=== PATIENT | female | born 1970 | race Caucasian/White ===

== ENCOUNTER 2017-10-28 17:30 | Emergency (ER) | payer OTHER ==
[~2017-10-28] VITALS: Ht 162.6 cm; Wt 93.0 kg
[~2017-10-28 17:30] MED LIST: ACETAMINOPHEN-1 EAC1 PO; ALBUTEROL INHAL17 GM IH; ALBUTEROL2.5 MG/31 INH; ALLEGRA180 MG; AZITHROMYCIN 2250 MG PO; B COMPLEX1 EAC1 PO; BIOTIN5 M1 PO; CARAFATE 1 GM TA1 G1 PO; CLEOCIN HCL300 MG PO; CYCLOBENZAPRINE10 MG PO; ESTRACE2 MG PO; ESTRADIOL 1 MG T1 M1; ESTROGEN; HYDROCODON-ACE1 EAC8 PO; HYDROCODONE-AP1 EAC6 PO; HYDROCODONE-APA1 TA1 PO; KEFLEX500 MG PO; MEDROLDOSEPACK PO; NASONEX17 GM; NEURONTIN 300300 M1 PO; NEXIUM 40 MG CA40 M1 PO; NEXIUM40 MG PO; NORCO 5-325 TA1 EAC1 PO; NORCO 5-325 TA1 EACH PO; OXYCODONE HCL 55 MG PO; PERCOCET 5-3251 EACH PO; PREDNISONE 20 M20 MG; PREDNISONE50 MG PO; PROAIR HFA8.5 GM INH; PROTONIX 20 MG20 M1 PO; TOPAMAX 100 MG100 MG PO; TORADOL 10 MG T10 MG PO; TYLENOL325 MG PO; ULTRAM 50MG TAB50 MG PO; VALIUM5 MG PO; VICODIN 5-5001 EACH PO; VITAMIN B-12500 MCG PO; ZOFRAN ODT4 MG PO; ZPAK PO; ZYRTEC10 M2
[2017-10-28] MEDS ORDERED: BIOTIN1 M1 PO (17:42)
[2017-10-28] MEDS ORDERED: NEURONTIN 300300 M1 PO (17:42)
[2017-10-28 18:15] LABS: ABSOLUTE EOSINOPHILS 0.3 thou/uL (0.0-0.7); ABSOLUTE MONOCYTES 0.5 thou/uL (0.0-1.2); ABSOLUTE NEUTROPHILS 3.1 thou/uL (1.6-8.1); BASOPHILS 0.5 %; EOSINOPHILS 5.1 %; HEMATOCRIT 31.1 % (37.0-47.0); LYMPHOCYTES 33.9 %; MCH 24.3 pg (26.0-34.0); MCV 75.8 fL (80.0-100.0); MONOCYTES 8.1 %; MPV 8.4 fl. (7.2-11.1); NUCLEATED RBCS 0 /100WBC; PLATELET COUNT* 246 thou/uL (150-400); POLYS 52.4 %; RDW-CV 18.6 % (10.5-14.5); WBC 5.9 thou/uL (4.0-11.0)
[2017-10-28 18:24] LABS: CREATININE 0.8 mg/dL (0.6-1.3); POTASSIUM 4.7 mmol/L (3.5-5.1)
[2017-10-28 18:29] LABS: ALBUMIN 3.2 g/dL (3.4-5.0); TOTAL BILIRUBIN 0.1 mg/dL (<0.1-1.0); TOTAL PROTEIN 6.8 g/dL (6.4-8.2)
[2017-10-28 19:28] LABS: URINE BILIRUBIN NEGATIVE (Negative); URINE BLOOD NEGATIVE (Negative); URINE CLARITY CLEAR; URINE COLOR YELLOW; URINE GLUCOSE-RANDOM NEGATIVE (Negative); URINE KETONES TRACE (Negative); URINE LEUKOCYTES NEGATIVE (Negative); URINE NITRITE NEGATIVE (Negative); URINE PROTEIN NEGATIVE (Negative)
[2017-10-28] MEDS ORDERED: ONDANSETRON HCL4 M2 PO (19:30)
[2017-10-28] MEDS ORDERED: TRAMADOL 50 MG50 MG PO (19:30)
[2017-10-28 19:47] VITALS: BP 129/49
== END 2017-10-28 19:47 | disposition home or self-care (01) ==
LOC: M.ERS 17:30
PROVIDERS: Nurse Practitioner Family
DX: K59.00 Constipation, unspecified (principal); R11.2 Nausea with vomiting, unspecified; S30.861A Insect bite (nonvenomous) of abdominal wall, initial encounter; G43.909 Migraine, unspecified, not intractable, without status migrainosus; G62.9 Polyneuropathy, unspecified; Z90.49 Acquired absence of other specified parts of digestive tract; Z90.710 Acquired absence of both cervix and uterus; Z88.6 Allergy status to analgesic agent; Z88.5 Allergy status to narcotic agent; Z88.0 Allergy status to penicillin; W57.XXXA Bitten or stung by nonvenomous insect and other nonvenomous arthropods, initial encounter; Y93.89 Activity, other specified; Y92.89 Other specified places as the place of occurrence of the external cause; Y99.8 Other external cause status

== ENCOUNTER 2019-03-13 14:09 | Inpatient (IN) | payer OTHER ==
[~2019-03-13] VITALS: Ht 162.6 cm; Wt 111.6 kg
[~2019-03-13 14:09] MED LIST changes: +BIOTIN1 M1 PO; +ONDANSETRON HCL4 M2 PO; +TRAMADOL 50 MG50 MG PO
[2019-03-13 14:10] VITALS: BP 127/61
[2019-03-13] MEDS ORDERED: AMBIEN 10 MG TA10 MG PO (14:15)
[2019-03-13 14:55] LABS: ABSOLUTE EOSINOPHILS 0.2 thou/uL (0.0-0.7); ABSOLUTE MONOCYTES 0.6 thou/uL (0.0-1.2); ABSOLUTE NEUTROPHILS 2.2 thou/uL (1.6-8.1); BASOPHILS 0.6 %; EOSINOPHILS 5.1 %; HEMATOCRIT 32.5 % (37.0-47.0); HEMOGLOBIN 10.6 gm/dL (12.0-15.0); LYMPHOCYTES 24.4 %; MCH 23.6 pg (26.0-34.0); MCHC 32.7 g/dL (28.0-37.0); MCV 72.2 fL (80.0-100.0); MONOCYTES 14.9 %; MPV 8.8 fl. (7.2-11.1); NUCLEATED RBCS 0 /100WBC; PLATELET COUNT* 227 thou/uL (150-400); RDW-CV 20.3 % (10.5-14.5); WBC 3.9 thou/uL (4.0-11.0)
[2019-03-13 14:58] LABS: BE -0.5 mmol/L (-2 to +3); PCO2 22.6 mmHg (35.0-45.0); pH 7.571 (7.340-7.450)
[2019-03-13 15:05] LABS: PO2 155.2 mmHg (75.0-100.0)
[2019-03-13 15:06] LABS: CALCIUM 8.8 mg/dL (8.5-10.1); CREATININE 0.9 mg/dL (0.6-1.3); POTASSIUM 3.6 mmol/L (3.5-5.1)
[2019-03-13 15:08] LABS: APTT 21.8 Seconds (25.0-31.3)
[2019-03-13 15:17] LABS: ALBUMIN 3.2 g/dL (3.4-5.0); TOTAL BILIRUBIN 0.2 mg/dL (<0.1-1.0); TOTAL PROTEIN 7.2 g/dL (6.4-8.2)
[2019-03-13 16:19] LABS: ANISOCYTOSIS 2+; PLATELET ESTIMATE ADEQUATE
[2019-03-13 16:20] LABS: HYPOCHROMASIA 1+; MICROCYTES 1+
[2019-03-13 16:52] LABS: INFLUENZA A ANTIGEN Negative (Negative); INFLUENZA B ANTIGEN Negative (Negative)
[2019-03-13 17:33] VITALS: BP 132/61
[2019-03-13 17:47] LABS: URINE BILIRUBIN NEGATIVE (Negative); URINE BLOOD NEGATIVE (Negative); URINE CLARITY CLEAR; URINE COLOR YELLOW; URINE GLUCOSE-RANDOM NEGATIVE (Negative); URINE KETONES NEGATIVE (Negative); URINE LEUKOCYTES-REFLEX NEGATIVE (Negative); URINE NITRITE-REFLEX NEGATIVE (Negative); URINE PROTEIN NEGATIVE (Negative); URINE SPECIFIC GRAVITY <= 1.005 (1.005-1.030); URINE UROBILINOGEN 0.2 E.U./dl (0.2-1.0)
[2019-03-13 18:00] VITALS: BP 99/60
[2019-03-13 20:00] VITALS: BP 126/58
[2019-03-13 23:36] LABS: BE -5.2 mmol/L (-2 to +3); PCO2 27.7 mmHg (35.0-45.0); PO2 94.8 mmHg (75.0-100.0)
[2019-03-14] VITALS: BP 105/62
[2019-03-14 04:00] VITALS: BP 117/63
[2019-03-14 04:19] LABS: HEMATOCRIT 29.8 % (37.0-47.0); HEMOGLOBIN 9.7 gm/dL (12.0-15.0); MCH 23.6 pg (26.0-34.0); MCHC 32.4 g/dL (28.0-37.0); MCV 72.8 fL (80.0-100.0); MPV 8.6 fl. (7.2-11.1); RBC 4.09 mil/uL (4.20-5.00); RDW-CV 20.6 % (10.5-14.5); WBC 3.5 thou/uL (4.0-11.0)
[2019-03-14 04:39] LABS: ALBUMIN 2.8 g/dL (3.4-5.0); CALCIUM 8.1 mg/dL (8.5-10.1); CREATININE 0.9 mg/dL (0.6-1.3); MAGNESIUM 2.1 mg/dL (1.8-2.4); POTASSIUM 4.3 mmol/L (3.5-5.1); TOTAL BILIRUBIN 0.1 mg/dL (<0.1-1.0); TOTAL PROTEIN 6.6 g/dL (6.4-8.2)
[2019-03-14 07:00] VITALS: BP 125/63
[2019-03-14 08:07] LABS: AMP/METHAMP Negative (Negative); BARBITURATES Negative (Negative); BENZODIAZEPINES Negative (Negative); COCAINE Negative (Negative); METHADONE Negative (Negative); OPIATES Negative (Negative); PCP Negative (Negative); THC Negative (Negative)
[2019-03-14 09:15] LABS: CREATININE 0.9 mg/dL (0.6-1.3); POTASSIUM 3.8 mmol/L (3.5-5.1)
--- NOTE | 2019-03-14 09:38 | EKG ---
[place] [address] ELECTROCARDIOGRAM REPORT Name: ESTEFANIA CHAMPAGNE Room: [place] [address] ADM IN .R.#: [id number] Admission: 03/13/19 Attend Phys: Kajal Ruiz MD Discharge: Date of : 72 Report #: [id number] THIS REPORT FOR: //name// [facility] ED Test Date: 2019-03-13 Test Time: 14:41:56 Pat Name: ESTEFANIA CHAMPAGNE Department: Room: [facility] Gender: F Tier And Detonator: TDJIL : 1970 Requested By: Berna Mcclendon Order Number: [id number] MD: Barrera Augustine Measurements Intervals [place] Rate: 76 P: 70 IA: 144 QRS: 35 QRSD: 89 T: 48 QT: 389 QTc: 438 Interpretive Statements Sinus rhythm Low voltage, precordial leads Abnormal R-wave progression, early transition Compared to ECG 02/19/2017 11:26:15 Low QRS voltage now present Electronically Signed On 03-14-2019 9:38:20 [employer] by Barrera Augustine [email or web address] <ELECTRONICALLY SIGNED> By: Barrera Augustine MD, FACC 03/14/19 0938 1441 1441 Barrera Augustine MD, [facility] /EPI
--- NOTE | 2019-03-14 11:45 | 2DMMODE ---
[place] [address] 2 D/M-MODE ECHOCARDIOGRAM Name: ESTEFANIA CHAMPAGNE Room: [place] [address] ADM IN [facility]#: [id number] Admission: 03/13/19 Attend Phys: Kaajl Ruiz, Discharge: Date of : 72 Date of Service: 03/14/19 1144 Report #: [id number] THIS REPORT FOR: //name// APPROVED REPORT Study performed: 03/14/2019 10:20:19 EXAM: Comprehensive 2D, Doppler, and color-flow Echocardiogram Patient Location: In-Patient Room #: [facility] Status: routine BSA: 2.14 HR: 76 bpm BP: 125/63 mmHg Rhythm: NSR Other Information Study Quality: Good Indications Dyspnea 2D Dimensions IVSd: 10.39 (7-11mm) LVOT Diam: 19.52 (18-24mm) LVDd: 52.53 mm PWd: 9.71 (7-11mm) Ascending Ao: 29.05 (22-36mm) LVDs: 33.43 (25-40mm) Aortic Root: 30.75 mm Volumes Left Atrial Volume (Systole) LA ESV Index: 38.30 mL/m2 Aortic Valve AoV Peak Vidal.: 1.94 m/s AO Peak Gr.: 15.01 mmHg LVOT Max P.75 mmHg AO Mean Gr.: 7.57 mmHg LVOT Mean P.42 mmHg LVOT Max V: 1.56 m/s AO V2 VTI: 37.26 cm LVOT Mean V: 0.94 m/s EVGENY (VTI): 2.61 cm2 LVOT V1 VTI: 32.55 cm Mitral Valve E/A Ratio: 1.05 MV Decel. Time: 254.13 ms MV E Max Vidal.: 1.01 m/[place] [address] 2 D/M-MODE ECHOCARDIOGRAM Name: ESTEFANIA CHAMPAGNE Room: [address] IN .R.#: [id number] Admission: 03/13/19 Attend Phys: Kajal Ruiz, Discharge: Date of : 72 Date of Service: 03/14/19 1144 Report #: [id number] PHT: 73.70 ms MVA (PHT): 2.99 cm2 TDI E/Lateral E': 5.94 E/Medial E': 5.94 Medial E' Vidal.: 0.17 m/s Lateral E' Vidal.: 0.17 m/s Pulmonary Valve PV Peak Vidal.: 1.09 m/s PV Peak Gr.: 4.73 mmHg Left Ventricle The left ventricle is normal size. There is normal LV segmental wall motion. There is normal left ventricular wall thickness. Left ventricular systolic function is normal. The left ventricular ejection fraction is within the normal range. LVEF is 60-65%. The left ventricular diastolic function is normal. Right Ventricle The right ventricle is normal size. The right ventricular systolic function is normal. Atria Left atrium is mildly dilated. The right atrium size is normal. Aortic Valve The aortic valve is normal in structure. No aortic regurgitation is present. There is no aortic valvular stenosis. Mitral Valve The mitral valve is normal in structure. Mild mitral regurgitation. No evidence of mitral valve stenosis. Tricuspid Valve The tricuspid valve is normal in structure. Trace tricuspid regurgitation. Unable to assess PA pressure. Pulmonic Valve The pulmonary valve is normal in structure. There is no pulmonic valvular regurgitation. Great Vessels The aortic root is normal in size. IVC is normal in size and collapses >50% [place] [address] 2 D/M-MODE ECHOCARDIOGRAM Name: ESTEFANIA CHAMPAGNE Room: [address] IN [facility]#: [id number] Admission: 03/13/19 Attend Phys: Kajal Ruiz, Discharge: Date of : 72 Date of Service: 03/14/19 1144 Report #: [id number] Pericardium There is no pericardial effusion. <Conclusion> LVEF is 60-65%. The left ventricle is normal size. There is normal left ventricular wall thickness. There is normal LV segmental wall motion. The left ventricular diastolic function is normal. Left ventricular systolic function is normal. The left ventricular ejection fraction is within the normal range. Left atrium is mildly dilated. Mild mitral regurgitation. Trace tricuspid regurgitation. Unable to assess PA pressure. <ELECTRONICALLY SIGNED> By: Marco Aponte MD, FACC 03/14/19 1144 1144 1144 Marco Aponte MD, FACC /INF
[2019-03-14 12:13] VITALS: BP 134/56
[2019-03-14 17:00] VITALS: BP 115/54
[2019-03-14 20:00] VITALS: BP 125/70
[2019-03-14 23:07] LABS: GLYCOHEMOGLOBIN (HGB A1C) 5.5 % (4.8-5.6)
[2019-03-15] VITALS: BP 106/58
[2019-03-15 04:00] VITALS: BP 129/60
[2019-03-15 05:20] LABS: HEMATOCRIT 29.5 % (37.0-47.0); HEMOGLOBIN 9.5 gm/dL (12.0-15.0); MCH 23.6 pg (26.0-34.0); MCHC 32.3 g/dL (28.0-37.0); MCV 72.9 fL (80.0-100.0); MPV 8.5 fl. (7.2-11.1); RBC 4.05 mil/uL (4.20-5.00); WBC 8.8 thou/uL (4.0-11.0)
[2019-03-15 05:47] LABS: CALCIUM 8.4 mg/dL (8.5-10.1); CREATININE 0.7 mg/dL (0.6-1.3); MAGNESIUM 2.1 mg/dL (1.8-2.4); POTASSIUM 3.6 mmol/L (3.5-5.1); TOTAL BILIRUBIN 0.2 mg/dL (<0.1-1.0); TOTAL PROTEIN 6.6 g/dL (6.4-8.2)
[2019-03-15] MEDS ORDERED: MEDROL4 M1 PO (07:28)
[2019-03-15] MEDS ORDERED: FERREX 150 PLU1 EAC1 PO (07:28)
[2019-03-15] MEDS ORDERED: FOLIC ACID1 MG PO (07:28)
[2019-03-15] MEDS ORDERED: LEVAQUIN 500 M500 M3 PO (07:28)
[2019-03-15] MEDS ORDERED: ALBUTEROL2.5 MG/31 INH (07:28)
[2019-03-15 08:00] VITALS: BP 127/72
[2019-03-15 09:39] VITALS: BP 129/60
--- NOTE | 2019-03-17 09:24 | CON ---
[address] [address] CONSULTATION Name: ESTEFANIA CHAMPAGNE Room: [address] IN .R.#: [id number] Admission: 03/13/19 Attend Phys: Kajal Ruiz MD Discharge: 03/15/19 Date of : 72 Report #: [id number] THIS REPORT FOR: //name// CC: Fredrick Ruiz DATE OF SERVICE: 03/14/2019 NEPHROLOGY CONSULTATION CONSULTING PHYSICIAN: Dr. Kajal Ruiz. REASON FOR NEPHROLOGY CONSULTATION: Metabolic acidosis. REASON FOR ADMISSION: Shortness of breath. HISTORY OF PRESENT ILLNESS: The patient is a pleasant 48-year-old female with past medical history of migraines, gastric bypass, neuropathy, came in because of cough and shortness of breath, which rapidly worsened 4 hours prior to admission. There were about 3 family members at home, which had been sick similarly. She was wheezing. She was given bronchodilator treatment. She is feeling much better now. When she came in, her blood pressure also dropped and the initial average 99/60. Lactate was high at 2.9. Her blood gas showed evidence of what looked like acute respiratory alkalosis with evidence of anion gap metabolic acidosis. She did have some diarrhea yesterday morning. Her kidney function is normal. Her tox screen showed that salicylate level was normal. Her blood pressure is improved now. She also had a fever of 102 degrees Fahrenheit. ALLERGIES: PENICILLIN, MORPHINE, IBUPROFEN, MEPERIDINE. REVIEW OF SYSTEMS: As mentioned in history of present illness, otherwise 10-point review of systems are negative. MEDICATIONS: Her home medications include Biotene, gabapentin and zolpidem. PAST MEDICAL AND SURGICAL HISTORY: Includes migraines, endometriosis, intussusception, hysterectomy, cholecystectomy, gastric bypass, hiatal hernia, perforated bowel, neuropathy. FAMILY HISTORY: Heart disease, cancer, diabetes. SOCIAL HISTORY: Former smoker, does not use alcohol, [place] [address] CONSULTATION Name: ESTEFANIA CHAMPAGNE Room: [address] IN ..#: [id number] Admission: 03/13/19 Attend Phys: Kajal Ruiz MD Discharge: 03/15/19 Date of : 72 Report #: [id number] PHYSICAL EXAMINATION: VITAL SIGNS: Blood pressure is 125/63, pulse is 84, temperature 36.7, respiratory rate is 22 and her pulse ox is 100% and she is on room air. GENERAL: She is awake, alert, oriented x 3. HEAD AND EYES: Atraumatic, normocephalic. Normal conjunctivae. EARS, NOSE, AND THROAT: Normal ears and nose and mucous membranes are moist. NECK: No JVD. CHEST: Shows diminished breath sounds bilaterally, posteriorly, anteriorly and bilateral wheezing present. CARDIOVASCULAR: S1, S2 normal. No murmurs present. ABDOMEN: Soft, obese, otherwise nondistended, nontender. EXTREMITIES: Lower extremities, there is no edema. NEUROLOGICAL FUNCTION: Gross neurological function is intact. PSYCHOLOGICAL: Mood, affect flynn, she seems to be normal. LABORATORY DATA: Hemoglobin is 9.7, WBC is 3.5. Sodium is 140, potassium is 4.3, CO2 is 20, creatinine is 0.9. Lactate was 2.9, down to 2.4. Other labs were reviewed. IMAGING: Chest x-ray, chest and thoracic CTA, venous Doppler studies were reviewed and they were all negative. ASSESSMENT: 1. High anion gap metabolic acidosis in the setting of hypotension and lactic acidosis. 2. Respiratory alkalosis in the setting of bronchitis and acute respiratory failure, hypoxic kidney injury which is now improving. 3. Suspected viral pneumonia. 4. Migraines. 5. History of gastric bypass. 6. History of neuropathy. 7. History of endometriosis. PLAN: 1. She has been getting IV fluids. If she is eating and drinking well, IV fluids can be stopped. 2. Her high anion gap metabolic acidosis is in the setting of intravascular volume depletion and also lactic acidosis, which is in the setting of hypoperfusion with her blood pressure was low. 3. Respiratory alkalosis explained by her acute respiratory distress. 4. Recheck labs in the afternoon. 5. There is nothing else to add from Nephrology standpoint[place] [address] CONSULTATION Name: ESTEFANIA CHAMPAGNE Room: [address] IN .R.#: [id number] Admission: 03/13/19 Attend Phys: Kajal Ruiz MD Discharge: 03/15/19 Date of : 72 Report #: [id number] and please call with any questions. Discussed with Dr. Ruiz as well as the patient. <ELECTRONICALLY SIGNED> By: Ekaterina Elizabeth MD 03/17/19 0924 0836 1007Ekaterina Elizabeth MD /nt
[2019-03-18 22:06] LABS: ADENOVIRUS Negative (Negative); INFLUENZA A Negative (Negative); INFLUENZA B Negative (Negative); METAPNEUMOVIRUS Negative (Negative); PARAINFLUENZA 1 Negative (Negative); PARAINFLUENZA 2 Negative (Negative); PARAINFLUENZA 3 Negative (Negative); RHINOVIRUS Negative (Negative); RSV A Negative (Negative); RSV B Positive (Negative)
[2019-03-20] MEDS ORDERED: ALBUTEROL2.5 MG/31 INH (21:18)
== END 2019-03-15 10:21 | disposition home or self-care (01) | DRG 193 ==
LOC: M.ERS 14:09 → M.2W 17:02 → M.TBA-ER 17:02 → M.2W 17:53
PROVIDERS: Personal Emergency Response Attendant; ADMIT Internal Medicine
DX: J12.9 Viral pneumonia, unspecified (principal); J96.01 Acute respiratory failure with hypoxia; R65.10 Systemic inflammatory response syndrome (SIRS) of non-infectious origin without acute organ dysfunction; E87.3 Alkalosis; E87.2 Acidosis; N17.9 Acute kidney failure, unspecified; Z68.41 Body mass index [BMI] 40.0-44.9, adult; E66.01 Morbid (severe) obesity due to excess calories; J44.9 Chronic obstructive pulmonary disease, unspecified; D64.9 Anemia, unspecified; G43.909 Migraine, unspecified, not intractable, without status migrainosus; N80.9 Endometriosis, unspecified; G62.9 Polyneuropathy, unspecified; K21.9 Gastro-esophageal reflux disease without esophagitis; I95.9 Hypotension, unspecified; R60.0 Localized edema; Z90.710 Acquired absence of both cervix and uterus; Z90.49 Acquired absence of other specified parts of digestive tract; Z98.84 Bariatric surgery status; Z79.899 Other long term (current) drug therapy; Z88.6 Allergy status to analgesic agent; Z88.5 Allergy status to narcotic agent; Z88.0 Allergy status to penicillin; Z83.3 Family history of diabetes mellitus; Z82.49 Family history of ischemic heart disease and other diseases of the circulatory system; Z80.9 Family history of malignant neoplasm, unspecified; Z87.891 Personal history of nicotine dependence; Z98.890 Other specified postprocedural states; Z90.722 Acquired absence of ovaries, bilateral

== ENCOUNTER 2020-06-15 14:56 | Emergency (ER) | payer MEDICARE, OTHER ==
[~2020-06-15] VITALS: Ht 162.6 cm; Wt 104.3 kg
[~2020-06-15 14:56] MED LIST changes: +AMBIEN 10 MG TA10 MG PO; +FERREX 150 PLU1 EAC1 PO; +FOLIC ACID1 MG PO; +LEVAQUIN 500 M500 M3 PO; +MEDROL4 M1 PO
[2020-06-15] MEDS ORDERED: NORCO5 PO (16:27)
[2020-06-15 16:43] VITALS: BP 123/62
== END 2020-06-15 16:44 | disposition home or self-care (01) ==
LOC: M.ERS 14:56
DX: R07.81 Pleurodynia (principal); G43.909 Migraine, unspecified, not intractable, without status migrainosus; G62.9 Polyneuropathy, unspecified; N80.9 Endometriosis, unspecified; Z88.6 Allergy status to analgesic agent; Z88.0 Allergy status to penicillin; Z88.5 Allergy status to narcotic agent; Z88.8 Allergy status to other drugs, medicaments and biological substances; Z90.710 Acquired absence of both cervix and uterus; Z90.49 Acquired absence of other specified parts of digestive tract

== ENCOUNTER 2020-11-02 00:11 | Emergency (ER) | payer MEDICARE, OTHER ==
[~2020-11-02] VITALS: Ht 162.6 cm; Wt 93.0 kg
[~2020-11-02 00:11] MED LIST changes: +NORCO5 PO
[2020-11-02 00:43] VITALS: BP 152/69
== END 2020-11-02 01:00 | disposition left against medical advice (07) ==
LOC: M.ERS 00:11
DX: R51.9 Headache, unspecified (principal); Z53.21 Procedure and treatment not carried out due to patient leaving prior to being seen by health care provider

== ENCOUNTER 2020-12-19 22:41 | Emergency (ER) | payer MEDICARE, OTHER ==
[~2020-12-19] VITALS: Ht 162.6 cm; Wt 114.0 kg
[2020-12-19 22:59] LABS: ABSOLUTE BASOPHILS 0.1 thou/uL (0.0-0.2); ABSOLUTE EOSINOPHILS 0.3 thou/uL (0.0-0.7); ABSOLUTE LYMPHOCYTES 2.8 thou/uL (0.8-5.3); ABSOLUTE MONOCYTES 0.7 thou/uL (0.0-1.2); BASOPHILS 0.6 %; EOSINOPHILS 3.3 %; HEMOGLOBIN 14.2 gm/dL (12.0-15.0); LYMPHOCYTES 28.6 %; MCH 31.4 pg (26.0-34.0); MCHC 34.6 g/dL (28.0-37.0); MCV 90.9 fL (80.0-100.0); MONOCYTES 7.1 %; MPV 9.1 fl. (7.2-11.1); NUCLEATED RBCS 0 /100WBC; PLATELET COUNT* 196 thou/uL (150-400); POLYS 60.4 %; RBC 4.51 mil/uL (4.20-5.00); RDW-CV 13.8 % (10.5-14.5); WBC 9.9 thou/uL (4.0-11.0)
[2020-12-19 23:08] LABS: CALCIUM 8.7 mg/dL (8.5-10.1); CREATININE 0.8 mg/dL (0.6-1.3); POTASSIUM 3.6 mmol/L (3.5-5.1)
[2020-12-19 23:19] LABS: ALBUMIN 3.7 g/dL (3.4-5.0); MAGNESIUM 2.1 mg/dL (1.8-2.4); TOTAL BILIRUBIN 0.2 mg/dL (<0.1-1.0)
[2020-12-20 00:15] VITALS: BP 111/57
--- NOTE | 2020-12-20 11:21 | EKG ---
[place] [address] ELECTROCARDIOGRAM REPORT Name: ESTEFANIA CHAMPAGNE Room: [facility]#: [id number] Admission: 12/19/20 Attend Phys: Discharge: 12/20/20 Date of : 72 Date of Service: 12/19/202240 Report #: [id number] THIS REPORT FOR: //name// [facility] ED Test Date: 2020-12-19 Test Time: 22:41:41 Pat Name: ESTEFANIA CHAMPAGNE Department: Room: Gender: F Pharmacy Order Entry Technician: JACKIE : 1970 Requested By: Mitra Sultana Order Number: [id number] MD: Barrera Augustine Measurements Intervals [place] Rate: 86 P: 81 PA: 145 QRS: 12 QRSD: 100 T: 41 QT: 363 QTc: 434 Interpretive Statements Sinus rhythm CYRUS, consider biatrial enlargement Abnormal R-wave progression, early transition artifact noted Compared to ECG 03/13/2019 14:41:56 no change Electronically Signed On 12-20-2020 11:21:21 CDT by Barrera Augustine [email or web address] <ELECTRONICALLY SIGNED> By: Barrera Augustine MD, [facility] 12/20/20 1121 40 40 Barrera Augustine MD, [facility] /EPI
== END 2020-12-20 00:15 | disposition home or self-care (01) ==
LOC: M.ERS 22:41
PROVIDERS: Emergency Medicine
DX: F41.9 Anxiety disorder, unspecified (principal); Z90.89 Acquired absence of other organs; Z90.49 Acquired absence of other specified parts of digestive tract; Z88.0 Allergy status to penicillin; Z88.5 Allergy status to narcotic agent; Z88.6 Allergy status to analgesic agent